=== PATIENT | female | born 1965 | race Asian ===

== ENCOUNTER 2021-01-25 15:39 | Emergency (ER) | payer OTHER ==
[2021-01-25 15:48] VITALS: BMI 23.0
[2021-01-25] MEDS ORDERED: ONDANSETRON 4 MG/2 ML VIAL IVPUSH ONE (16:35)
[2021-01-25] MEDS ORDERED: morphine CARPU-JECT 4 MG/1 ML DISP.SYRIN IVPUSH ONE (16:35)
[2021-01-25] MEDS ORDERED: SODIUM CHLORIDE 1,000 ML IV STA (16:35)
[2021-01-25] MEDS ORDERED: morphine SULFATE 4 MG/ML VIAL ONE (17:06)
[2021-01-25] MEDS ORDERED: ONDANSETRON 4 MG/2 ML VIAL ONE (17:06)
[2021-01-25 18:03] LABS: BASO % 0.4 % (0-2.0); EOS % 0.2 % (0-4.5); HEMATOCRIT 40.9 % (32.4-45.2); HEMOGLOBIN 13.9 GM/dL (10.7-15.3); LYMPH % 23.1 % (8-40); MCH 28.1 pg (25.7-33.7); MEAN CELL VOLUME 82.8 fl (80-96); MEAN PLT VOLUME 8.4 fl (7.5-11.1); MONO % 4.2 % (3.8-10.2); NEUT % 72.1 % (42.8-82.8); PLATELET COUNT 183 10^3/uL (134-434); RBC 4.94 M/mm3 (3.60-5.2); RDW 13.6 % (11.6-15.6); WHITE BLOOD COUNT 7.9 K/mm3 (4.0-10.0)
[2021-01-25 18:29] LABS: CALCIUM 9.6 mg/dL (8.5-10.1)
[2021-01-25 18:30] LABS: ALBUMIN 4.4 g/dl (3.4-5.0); BLOOD UREA NITROGEN 13.5 mg/dL (7-18)
[2021-01-25 18:32] LABS: CREATININE 0.7 mg/dL (0.55-1.3)
[2021-01-25 18:34] LABS: BILIRUBIN,TOTAL 0.7 mg/dL (0.2-1); TOT PROT 8.6 g/dl (6.4-8.2)
[2021-01-25 20:35] LABS: EPI CELLS 10 /uL (0-25.1); HYALINE CASTS 2 /uL (0-3.1); URINE APPEARANCE CLEAR; URINE BACTERIA 35 /uL (0-1359); URINE BILIRUBIN NEGATIVE (NEGATIVE); URINE COLOR YELLOW; URINE GLUCOSE (UA) NEGATIVE (NEGATIVE); URINE KETONE TRACE (NEGATIVE); URINE LEUK ESTERASE NEGATIVE (NEGATIVE); URINE NITRITE NEGATIVE (NEGATIVE); URINE PROTEIN 2+ (NEGATIVE); URINE RBC 52 /uL (0-23.9); URINE UROBILINOGEN 0.2 mg/dL (0.2-1.0); URINE WBC 4 /uL (0-25.8)
[2021-01-25 20:52] VITALS: BP 139/62; PULSE 69; TEMP 98.1
== END 2021-01-25 21:42 | disposition home or self-care (01) ==
LOC: JER 15:39
PROC: 3E033NZ Introduction of Analgesics, Hypnotics, Sedatives into Peripheral Vein, Percutaneous Approach (ICD-10-PCS; principal; 2021-01-25)
PROC: 3E033GC Introduction of Other Therapeutic Substance into Peripheral Vein, Percutaneous Approach (ICD-10-PCS; 2021-01-25)
PROC: 3E0337Z Introduction of Electrolytic and Water Balance Substance into Peripheral Vein, Percutaneous Approach (ICD-10-PCS; 2021-01-25)
DX: K57.90 Diverticulosis of intestine, part unspecified, without perforation or abscess without bleeding (principal)
CPT/HCPCS: 36415; 74177-TC; 80053; 81003; 83690; 85025; 87086; 87186; 99285-25; C9803; Q9967; U0003; U0005

== ENCOUNTER 2021-07-15 18:12 | Emergency (ER) | payer OTHER ==
[2021-07-15 18:17] VITALS: BP 165/96; PULSE 71; TEMP 97; BMI 23.3
[2021-07-15] MEDS ORDERED: SODIUM CHLORIDE 0.9% 500 ML INFUS.BAG IV ONE (19:28)
[2021-07-15 20:30] LABS: BASO % 0.2 % (0-2.0); EOS % 0.5 % (0-4.5); HEMATOCRIT 38.2 % (32.4-45.2); HEMOGLOBIN 13.2 GM/dL (10.7-15.3); LYMPH % 24.6 % (8-40); MCH 28.1 pg (25.7-33.7); MCHC 34.4 g/dl (32.0-36.0); MEAN CELL VOLUME 81.7 fl (80-96); MEAN PLT VOLUME 8.6 fl (7.5-11.1); MONO % 4.9 % (3.8-10.2); NEUT % 69.8 % (42.8-82.8); PLATELET COUNT 190 10^3/uL (134-434); RBC 4.68 M/mm3 (3.60-5.2); RDW 13.3 % (11.6-15.6); WHITE BLOOD COUNT 10.9 K/mm3 (4.0-10.0)
[2021-07-15 20:34] LABS: EPI CELLS 5 /uL (0-25.1); HYALINE CASTS 0 /uL (0-3.1); URINE APPEARANCE CLEAR; URINE BACTERIA 5 /uL (0-1359); URINE BILIRUBIN NEGATIVE (NEGATIVE); URINE COLOR YELLOW; URINE GLUCOSE (UA) NEGATIVE (NEGATIVE); URINE KETONE NEGATIVE (NEGATIVE); URINE LEUK ESTERASE NEGATIVE (NEGATIVE); URINE NITRITE NEGATIVE (NEGATIVE); URINE PROTEIN NEGATIVE (NEGATIVE); URINE RBC 22 /uL (0-23.9); URINE UROBILINOGEN 0.2 mg/dL (0.2-1.0); URINE WBC 5 /uL (0-25.8)
[2021-07-15] MEDS ORDERED: ACETAMINOPHEN 1000 MG/100 ML BAG IVPB ONE (20:52)
[2021-07-15] MEDS ORDERED: ACETAMINOPHEN INJECTION 100 ML IVPB ONE (20:59)
[2021-07-15 21:08] LABS: ALBUMIN 4.2 g/dl (3.4-5.0); CALCIUM 9.7 mg/dL (8.5-10.1)
[2021-07-15 21:11] LABS: CREATININE 0.6 mg/dL (0.55-1.3)
[2021-07-15 21:12] LABS: BILIRUBIN,TOTAL 0.8 mg/dL (0.2-1)
[2021-07-15 21:13] LABS: TOT PROT 7.8 g/dl (6.4-8.2)
== END 2021-07-15 23:36 | disposition home or self-care (01) ==
LOC: JER 18:12
PROC: 3E0333Z Introduction of Anti-inflammatory into Peripheral Vein, Percutaneous Approach (ICD-10-PCS; principal; 2021-07-15)
DX: R10.9 Unspecified abdominal pain (principal)
CPT/HCPCS: 36415; 74177-TC; 80053; 81003; 83605; 83690; 85025; 87086; 93005; 93010; 99285-25; Q9967

== ENCOUNTER 2021-07-26 05:20 | Day surgery (SDC) | payer OTHER ==
[2021-07-25 09:40] VITALS: BMI 23.0
[2021-07-26] MEDS ORDERED: SODIUM CHLORIDE 500 ML IV ONE (11:05)
[2021-07-26] MEDS ORDERED: ACETAMINOPHEN 1000 MG/100 ML BAG IVPB ONE (11:45)
[2021-07-26] MEDS ORDERED: MIDAZOLAM HCL 2 MG/2 ML SINGLE DOSE VIAL IVPUSH ONE (11:45)
[2021-07-26] MEDS ORDERED: ACETAMINOPHEN INJECTION 100 ML IVPB ONE (12:38)
[2021-07-26 13:58] VITALS: BP 105/60; PULSE 64; TEMP 98.1
== END 2021-07-26 14:00 | disposition home or self-care (01) ==
LOC: JRADIR 05:20
PROVIDERS: ATTEND Internal Medicine Hematology & Oncology
PROC: 07DD3ZX Extraction of Aortic Lymphatic, Percutaneous Approach, Diagnostic (ICD-10-PCS; principal; 2021-07-26)
DX: R59.0 Localized enlarged lymph nodes (principal)
CPT/HCPCS: 49180; 87070; 87075; 87116; 87205; 87206; 88305-TC; 88312-TC

== ENCOUNTER → 2021-09-10 | Day surgery (SDC) | payer OTHER ==
[2021-09-07 15:16] VITALS: BMI 22.8
[~2021-09-10] MED LIST: FENTANYL CITRATE/PF 50 MCG/ML VIAL IVPUSH PRN; LIDOCAINE HCL 1%, 10 MG/ML (20ML VIAL) INF ONE; LIDOCAINE HCL 1%, 10 MG/ML (20ML VIAL) ONE; ONDANSETRON 4 MG/2 ML VIAL IVPUSH PRN; ceFAZolin SODIUM 1 GM VIAL IVPB ONE
[2021-09-10 13:59] VITALS: BP 129/79; PULSE 64; TEMP 98
== END | disposition home or self-care (01) ==
LOC: JASU-SURG 04:12
PROVIDERS: ATTEND Surgery Vascular Surgery
PROC: B518ZZA Fluoroscopy of Superior Vena Cava, Guidance (ICD-10-PCS; 2021-09-10)
PROC: 02HV33Z Insertion of Infusion Device into Superior Vena Cava, Percutaneous Approach (ICD-10-PCS; principal; 2021-09-10 08:00)
DX: C7A.8 Other malignant neuroendocrine tumors (principal)
CPT/HCPCS: 36561; C1788; 71045-TC-FY; 76000-TC-FY; 94760; J1644

== ENCOUNTER 2021-09-12 06:44 | Day surgery (SDC) | payer OTHER ==
[2021-09-12] MEDS ORDERED: SODIUM CHLORIDE 1,000 ML IV ONE ×2 (09:00→12:00)
[2021-09-12] MEDS ORDERED: PALONOSETRON HCL 0.25 MG/5 ML VIAL IVPUSH ONE (09:30)
[2021-09-12] MEDS ORDERED: FOSAPREPITANT DIMEGLUMINE 150 MG in SODIUM CHLORIDE 145 ML IVPB ONE (09:30)
[2021-09-12] MEDS ORDERED: DEXAMETHASONE SODIUM PHOSPHATE 10 MG in SODIUM CHLORIDE 50 ML IVPB ONE (09:30)
[2021-09-12] MEDS ORDERED: SODIUM CHLORIDE IV ONE ×2 (10:00→14:00)
[2021-09-12] MEDS ORDERED: CISPLATIN IV ONE (10:00)
[2021-09-12 10:19] LABS: BASO % 0.5 % (0-2.0); EOS % 1.4 % (0-4.5); HEMATOCRIT 36.8 % (32.4-45.2); HEMOGLOBIN 12.4 GM/dL (10.7-15.3); LYMPH % 35.4 % (8-40); MCHC 33.7 g/dl (32.0-36.0); MEAN PLT VOLUME 8.9 fl (7.5-11.1); MONO % 6.3 % (3.8-10.2); NEUT % 56.4 % (42.8-82.8); PLATELET COUNT 168 10^3/uL (134-434); RBC 4.43 M/mm3 (3.60-5.2); WHITE BLOOD COUNT 6.1 K/mm3 (4.0-10.0)
[2021-09-12 10:50] LABS: CALCIUM 9.4 mg/dL (8.5-10.1)
[2021-09-12 10:51] LABS: ALBUMIN 3.9 g/dl (3.4-5.0); BLOOD UREA NITROGEN 9.3 mg/dL (7-18)
[2021-09-12 10:53] LABS: CREATININE 0.7 mg/dL (0.55-1.3)
[2021-09-12 10:56] LABS: BILIRUBIN,TOTAL 0.7 mg/dL (0.2-1); TOT PROT 7.3 g/dl (6.4-8.2)
[2021-09-12] MEDS ORDERED: DEXAMETHASONE SOD PHOSPHATE 20 MG/5 ML VIAL IVPB ONE (10:59)
[2021-09-12] MEDS ORDERED: WATER IVPB ONE (12:00)
[2021-09-12] MEDS ORDERED: DEXTROSE 5% IVPB ONE (12:00)
[2021-09-12] MEDS ORDERED: DEXAMETHASONE IVPB ONE (12:00)
[2021-09-12] MEDS ORDERED: OLANZapine 5 MG TABLET PO ONE (12:00)
[2021-09-12] MEDS ORDERED: KCL 10 MEQ IVPB 10 MEQ/100 ML INFUS.BAG IVPB ONE (12:00)
[2021-09-12] MEDS ORDERED: MAGNESIUM 1GM/D5W - 1 GM/100 ML IVPB IVPB ONE (13:00)
[2021-09-12] MEDS ORDERED: ETOPOSIDE IV ONE (14:00)
[2021-09-12] MEDS ORDERED: PORTA CATH FLUSH 10 ML IVPUSH PRN (16:47)
[2021-09-12 16:48] VITALS: TEMP 97.8
[2021-09-12 19:10] VITALS: BP 107/62; PULSE 95
== END 2021-09-12 19:15 | disposition home or self-care (01) ==
LOC: JONCCHEMO 06:44
PROVIDERS: ATTEND Internal Medicine Hematology & Oncology
DX: Z51.11 Encounter for antineoplastic chemotherapy (principal); C7A.1 Malignant poorly differentiated neuroendocrine tumors
CPT/HCPCS: 36415; 80053; 83735; 85025; 86480; 86704; 86708; 87340; 87517; 96361; 96367; 96375; 96413; 96415; 96417; J1453; J2469

== ENCOUNTER 2021-09-13 07:49 | Day surgery (SDC) | payer OTHER ==
[2021-09-13] MEDS ORDERED: SODIUM CHLORIDE 250 ML IV ONE (09:00)
[2021-09-13] MEDS ORDERED: DEXAMETHASONE SODIUM PHOSPHATE 10 MG in SODIUM CHLORIDE 50 ML IVPB ONE (09:30)
[2021-09-13] MEDS ORDERED: ETOPOSIDE IV ONE (10:00)
[2021-09-13] MEDS ORDERED: SODIUM CHLORIDE IV ONE (10:00)
[2021-09-13] MEDS ORDERED: SODIUM CHLORIDE 500 ML IV STA (13:48)
[2021-09-13] MEDS ORDERED: OLANZapine 5 MG TABLET PO ONE (14:00)
[2021-09-13 15:00] VITALS: TEMP 98.5
[2021-09-13] MEDS ORDERED: PORTA CATH FLUSH 10 ML IVPUSH PRN (15:08)
[2021-09-13 18:52] VITALS: BP 106/69; PULSE 73
== END 2021-09-13 18:53 | disposition home or self-care (01) ==
LOC: JONCCHEMO 07:49
PROVIDERS: ATTEND Internal Medicine Hematology & Oncology
DX: Z51.11 Encounter for antineoplastic chemotherapy (principal); C7A.1 Malignant poorly differentiated neuroendocrine tumors
CPT/HCPCS: 96375; 96413; 96415

== ENCOUNTER 2021-09-14 07:42 | Day surgery (SDC) | payer OTHER ==
[2021-09-14] MEDS ORDERED: SODIUM CHLORIDE 250 ML IV ONE (11:00)
[2021-09-14] MEDS ORDERED: SODIUM CHLORIDE IV ONE (11:00)
[2021-09-14] MEDS ORDERED: ETOPOSIDE IV ONE (11:00)
[2021-09-14] MEDS ORDERED: DEXAMETHASONE SODIUM PHOSPHATE 10 MG in SODIUM CHLORIDE 50 ML IVPB ONE (11:00)
[2021-09-14 14:52] LABS: ALBUMIN 3.4 g/dl (3.4-5.0); BLOOD UREA NITROGEN 13.8 mg/dL (7-18); CALCIUM 9.1 mg/dL (8.5-10.1)
[2021-09-14 14:56] LABS: CREATININE 0.6 mg/dL (0.55-1.3)
[2021-09-14 14:57] LABS: BILIRUBIN,TOTAL 0.8 mg/dL (0.2-1); TOT PROT 6.5 g/dl (6.4-8.2)
[2021-09-14] MEDS ORDERED: PEGFILGRASTIM (NEULASTA ONPRO) 6 MG/0.6 ML KIT SQ ONE (15:00)
[2021-09-14] MEDS ORDERED: OLANZapine 5 MG TABLET PO ONE (15:00)
[2021-09-14 15:24] LABS: MAGNESIUM 2.3 mg/dL (1.8-2.4)
[2021-09-14 16:06] VITALS: BP 130/72; PULSE 87; TEMP 98.1
[2021-09-14] MEDS ORDERED: PORTA CATH FLUSH 10 ML IVPUSH PRN (16:06)
== END 2021-09-14 16:10 | disposition home or self-care (01) ==
LOC: JONCCHEMO 07:42
PROVIDERS: ATTEND Internal Medicine Hematology & Oncology
PROC: 3E04305 Introduction of Other Antineoplastic into Central Vein, Percutaneous Approach (ICD-10-PCS; principal; 2021-09-14)
PROC: 3E013GC Introduction of Other Therapeutic Substance into Subcutaneous Tissue, Percutaneous Approach (ICD-10-PCS; 2021-09-14)
DX: Z51.11 Encounter for antineoplastic chemotherapy (principal); C7A.1 Malignant poorly differentiated neuroendocrine tumors
CPT/HCPCS: 36415; 80053; 83735; 96372; 96375; 96413; 96415; J2506

== ENCOUNTER 2021-09-19 06:48 | Day surgery (SDC) | payer OTHER ==
[2021-09-19 09:29] LABS: HEMATOCRIT 35.2 % (32.4-45.2); MCH 28.4 pg (25.7-33.7); MCHC 34.1 g/dl (32.0-36.0); MEAN CELL VOLUME 83.4 fl (80-96); MEAN PLT VOLUME 8.8 fl (7.5-11.1); PLATELET COUNT 121 10^3/uL (134-434); RBC 4.22 M/mm3 (3.60-5.2); WHITE BLOOD COUNT 5.7 K/mm3 (4.0-10.0)
[2021-09-19 10:50] LABS: ALBUMIN 3.8 g/dl (3.4-5.0); BLOOD UREA NITROGEN 16.4 mg/dL (7-18); CALCIUM 8.8 mg/dL (8.5-10.1); MAGNESIUM 2.2 mg/dL (1.8-2.4)
[2021-09-19 10:53] LABS: CREATININE 0.6 mg/dL (0.55-1.3)
[2021-09-19 10:54] LABS: TOT PROT 7.2 g/dl (6.4-8.2)
[2021-09-19 10:57] LABS: BILIRUBIN,TOTAL 0.6 mg/dL (0.2-1)
[2021-09-19] MEDS ORDERED: SODIUM CHLORIDE 500 ML IV STA (11:11)
[2021-09-19 11:14] LABS: PLATELET ESTIMATE SLT DECREASE
[2021-09-19 12:30] VITALS: TEMP 98.3
[2021-09-19 16:56] VITALS: BP 117/74; PULSE 80
== END 2021-09-19 13:35 | disposition home or self-care (01) ==
LOC: JONCCHEMO 06:48
PROVIDERS: ATTEND Internal Medicine Hematology & Oncology
PROC: 3E0437Z Introduction of Electrolytic and Water Balance Substance into Central Vein, Percutaneous Approach (ICD-10-PCS; principal; 2021-09-19)
DX: C7A.1 Malignant poorly differentiated neuroendocrine tumors (principal); Z76.89 Persons encountering health services in other specified circumstances
CPT/HCPCS: 36415; 80053; 83735; 85025; 96360; 96361

== ENCOUNTER 2021-09-22 18:04 | Inpatient (IN) | payer OTHER ==
[2021-09-22] MEDS ORDERED: CEFEPIME HCL/D5W 2 GM/50 ML BAG IVPB ONE (18:25)
[2021-09-22] MEDS ORDERED: VANCOMYCIN/WATER 1,250 MG/250 ML BAG IVPB ONE (18:28)
[2021-09-22] MEDS ORDERED: ACETAMINOPHEN 1000 MG/100 ML BAG IVPB ONE (18:48)
[2021-09-22] MEDS ORDERED: ACETAMINOPHEN INJECTION 100 ML IVPB ONE (18:52)
[2021-09-22] MEDS ORDERED: CEFEPIME 2 GM/100 ML BAG IVPB ONE (18:52)
[2021-09-22] MEDS ORDERED: SODIUM CHLORIDE 1,701 ML IV ONE (18:56)
[2021-09-22 19:13] LABS: HEMATOCRIT 32.8 % (32.4-45.2); HEMOGLOBIN 10.9 GM/dL (10.7-15.3); MCH 27.7 pg (25.7-33.7); MCHC 33.3 g/dl (32.0-36.0); MEAN CELL VOLUME 83.2 fl (80-96); MEAN PLT VOLUME 8.5 fl (7.5-11.1); PLATELET COUNT 101 10^3/uL (134-434); RBC 3.94 M/mm3 (3.60-5.2); RDW 13.4 % (11.6-15.6); WHITE BLOOD COUNT 4.2 K/mm3 (4.0-10.0)
[2021-09-22 19:19] LABS: INR 1.08 (0.83-1.09); PROTHROMBIN TIME (PATIENT) 12.4 SEC (9.7-13.0)
[2021-09-22 19:21] LABS: ACTIVATED PTT 28.2 SECONDS (25.2-36.5)
[2021-09-22 19:32] LABS: BLOOD UREA NITROGEN 8.5 mg/dL (7-18); MAGNESIUM 1.9 mg/dL (1.8-2.4)
[2021-09-22 19:33] LABS: ALBUMIN 3.7 g/dl (3.4-5.0)
[2021-09-22 19:34] LABS: URIC ACID 3.6 mg/dL (2.6-7.2)
[2021-09-22 19:35] LABS: CREATININE 0.8 mg/dL (0.55-1.3)
[2021-09-22 19:36] LABS: PHOSPHOROUS 2.9 mg/dL (2.5-4.9)
[2021-09-22 19:37] LABS: BILIRUBIN,TOTAL 0.4 mg/dL (0.2-1)
[2021-09-22] MEDS ORDERED: LACTATED RINGERS SOLUTION 1000 ML INFUS.BAG IV ONE (20:03)
[2021-09-22 21:37] LABS: ANISOCYTOSIS 2+; MACROCYTOSIS 0; OVALOCYTE 1+; TEAR DROP CELLS 1+
[2021-09-22 22:39] LABS: PH,URINE 5.5 (5.0-8.0); URINE APPEARANCE CLEAR; URINE BILIRUBIN NEGATIVE (NEGATIVE); URINE COLOR YELLOW; URINE GLUCOSE (UA) NEGATIVE (NEGATIVE); URINE KETONE NEGATIVE (NEGATIVE); URINE LEUK ESTERASE NEGATIVE (NEGATIVE); URINE NITRITE NEGATIVE (NEGATIVE); URINE PROTEIN NEGATIVE (NEGATIVE); URINE UROBILINOGEN 0.2 mg/dL (0.2-1.0)
[2021-09-22] MEDS ORDERED: LOSARTAN POTASSIUM 50 MG TABLET ONE (22:42)
[2021-09-22] MEDS: LOSARTAN POTASSIUM 50 MG TABLET PO SCH (22:52)
[2021-09-23] MEDS: ACETAMINOPHEN 325 MG TABLET (FP) PO PRN ×2 (01:25→13:52)
[2021-09-23 03:04] VITALS: BMI 23.6
[2021-09-23] MEDS: WATER IVPB SCH (07:43)
[2021-09-23] MEDS: CEFEPIME IVPB SCH (07:43)
[2021-09-23] MEDS: DEXTROSE 5% IVPB SCH (07:43)
[2021-09-23] MEDS: ONDANSETRON 4 MG/2 ML VIAL IVPB PRN ×3 (08:45→21:12)
[2021-09-23] MEDS ORDERED: ACETAMINOPHEN 1000 MG/100 ML BAG IVPB ONE (08:45)
[2021-09-23 08:56] LABS: HEMATOCRIT 32.8 % (32.4-45.2); MCH 27.9 pg (25.7-33.7); MCHC 33.5 g/dl (32.0-36.0); MEAN CELL VOLUME 83.3 fl (80-96); MEAN PLT VOLUME 8.1 fl (7.5-11.1); PLATELET COUNT 96 10^3/uL (134-434); RBC 3.94 M/mm3 (3.60-5.2); WHITE BLOOD COUNT 4.1 K/mm3 (4.0-10.0)
[2021-09-23] MEDS ORDERED: PANTOPRAZOLE SODIUM 40 MG VIAL IVPUSH ONE (08:59)
[2021-09-23 09:13] LABS: ALBUMIN 3.4 g/dl (3.4-5.0)
[2021-09-23 09:14] LABS: BLOOD UREA NITROGEN 6.4 mg/dL (7-18); CALCIUM 9.1 mg/dL (8.5-10.1); MAGNESIUM 2.2 mg/dL (1.8-2.4)
[2021-09-23 09:16] LABS: CREATININE 0.6 mg/dL (0.55-1.3)
[2021-09-23 09:18] LABS: TOT PROT 6.6 g/dl (6.4-8.2)
[2021-09-23 09:21] LABS: BILIRUBIN,TOTAL 0.4 mg/dL (0.2-1)
[2021-09-23 09:46] LABS: ANISOCYTOSIS 1+; MACROCYTOSIS 0
[2021-09-23] MEDS ORDERED: CEFEPIME HCL/D5W 2 GM/50 ML BAG IVPB SCH (10:00)
[2021-09-23] MEDS: ENOXAPARIN NA (PORCINE) 40 MG/0.4 ML DISP.SYRIN SQ SCH (10:35)
[2021-09-23] MEDS ORDERED: DEXTROSE 5%-WATER 100 ML IVPB ONE (11:45)
[2021-09-23] MEDS ORDERED: CEFEPIME HCL 2 GM VIAL (RESTRICTED TO ID) ONE (11:45)
[2021-09-23] MEDS: CEFEPIME 2 GM in DEXTROSE 5%-WATER 100 ML IVPB SCH (11:47)
[2021-09-23] MEDS ORDERED: REMDESIVIR 200 MG in SODIUM CHLORIDE 250 ML IVPB ONE (13:00)
[2021-09-23] MEDS ORDERED: METOCLOPRAMIDE HCL INJECTION 10 MG/2 ML VIAL IVPUSH ONE (14:11)
[2021-09-23] MEDS ORDERED: SODIUM CHLORIDE 0.9% 1000 ML INFUS.BAG IV SCH ×2 (14:30→18:45)
[2021-09-23] MEDS ORDERED: VANCOMYCIN/WATER FOR INJ (PEG) 1,000 MG/200 ML BAG IVPB SCH (18:00)
[2021-09-23] MEDS ORDERED: VANCOMYCIN 1 GM/200 ML PREMIX BAG IVPB SCH (18:00)
[2021-09-23] MEDS ORDERED: ACETAMINOPHEN 1000 MG/100 ML BAG IVPB PRN (18:30)
[2021-09-23] MEDS: SODIUM CHLORIDE 1,000 ML IV SCH (18:55)
[2021-09-23] MEDS: PANTOPRAZOLE SODIUM 40 MG VIAL IVPB SCH (21:12)
[2021-09-23] MEDS: LOSARTAN POTASSIUM 50 MG TABLET PO SCH (22:41)
[2021-09-24] MEDS ORDERED: CEFEPIME HCL 2 GM VIAL (RESTRICTED TO ID) ONE ×3 (00:42→23:02)
[2021-09-24] MEDS ORDERED: DEXTROSE 5%-WATER 100 ML IVPB ONE ×3 (00:42→23:03)
[2021-09-24] MEDS: CEFEPIME 2 GM in DEXTROSE 5%-WATER 100 ML IVPB SCH ×3 (00:59→23:54)
[2021-09-24] MEDS: SODIUM CHLORIDE 1,000 ML IV SCH ×2 (07:10→18:22)
[2021-09-24 09:28] LABS: HEMATOCRIT 31.2 % (32.4-45.2); HEMOGLOBIN 10.5 GM/dL (10.7-15.3); MCH 28.1 pg (25.7-33.7); MCHC 33.7 g/dl (32.0-36.0); MEAN CELL VOLUME 83.3 fl (80-96); MEAN PLT VOLUME 7.7 fl (7.5-11.1); PLATELET COUNT 83 10^3/uL (134-434); RBC 3.74 M/mm3 (3.60-5.2); RDW 14.2 % (11.6-15.6); WHITE BLOOD COUNT 3.4 K/mm3 (4.0-10.0)
[2021-09-24] MEDS: ENOXAPARIN NA (PORCINE) 40 MG/0.4 ML DISP.SYRIN SQ SCH (09:41)
[2021-09-24] MEDS: PANTOPRAZOLE SODIUM 40 MG VIAL IVPB SCH ×2 (09:42→09:49)
[2021-09-24 10:35] LABS: ALBUMIN 3.3 g/dl (3.4-5.0)
[2021-09-24 10:36] LABS: CALCIUM 8.7 mg/dL (8.5-10.1)
[2021-09-24 10:39] LABS: BILIRUBIN,TOTAL 0.3 mg/dL (0.2-1)
[2021-09-24 10:41] LABS: TOT PROT 6.4 g/dl (6.4-8.2)
[2021-09-24 10:53] LABS: CREATININE 0.6 mg/dL (0.55-1.3)
[2021-09-24] MEDS ORDERED: guaiFENesin/D-METHORPHAN HB 10 ML UNIT-DOSE CUPS PO PRN (12:14)
[2021-09-24 13:09] LABS: ANISOCYTOSIS 0; MACROCYTOSIS 0; OVALOCYTE 1+; TOXIC GRANULATION 3+
[2021-09-24] MEDS: REMDESIVIR 100 MG in SODIUM CHLORIDE 250 ML IVPB SCH (13:22)
[2021-09-24] MEDS: LOSARTAN POTASSIUM 50 MG TABLET PO SCH (22:15)
[2021-09-24] MEDS: ONDANSETRON 4 MG/2 ML VIAL IVPB PRN (22:23)
[2021-09-25] MEDS: SODIUM CHLORIDE 1,000 ML IV SCH (04:24)
[2021-09-25 09:40] LABS: HEMATOCRIT 33.3 % (32.4-45.2); HEMOGLOBIN 11.2 GM/dL (10.7-15.3); MCH 28.1 pg (25.7-33.7); MCHC 33.6 g/dl (32.0-36.0); MEAN CELL VOLUME 83.8 fl (80-96); MEAN PLT VOLUME 7.8 fl (7.5-11.1); PLATELET COUNT 100 10^3/uL (134-434); RBC 3.97 M/mm3 (3.60-5.2); RDW 14.3 % (11.6-15.6); WHITE BLOOD COUNT 3.7 K/mm3 (4.0-10.0)
[2021-09-25] MEDS: ENOXAPARIN NA (PORCINE) 40 MG/0.4 ML DISP.SYRIN SQ SCH (10:09)
[2021-09-25] MEDS: PANTOPRAZOLE SODIUM 40 MG VIAL IVPB SCH (10:10)
[2021-09-25 10:11] LABS: CALCIUM 8.7 mg/dL (8.5-10.1)
[2021-09-25 10:15] LABS: CREATININE 0.7 mg/dL (0.55-1.3)
[2021-09-25 10:36] LABS: ANISOCYTOSIS 2+; MACROCYTOSIS 0; PLATELET ESTIMATE DECREASED
[2021-09-25] MEDS: REMDESIVIR 100 MG in SODIUM CHLORIDE 250 ML IVPB SCH (12:25)
[2021-09-25 15:08] VITALS: BP 116/69; PULSE 79; TEMP 98.5
[2021-09-26 15:08] LABS: SARS-CoV-2 NAA Detected (Not Detected)
== END 2021-09-25 18:08 | disposition home or self-care (01) | DRG 177 ==
LOC: JER 18:04 → JERBED 19:28 → J5S 09-23 01:13
PROVIDERS: ADMIT Internal Medicine
PROC: XW033E5 Introduction of Remdesivir Anti-infective into Peripheral Vein, Percutaneous Approach, New Technology Group 5 (ICD-10-PCS; principal; 2021-09-23)
DX: U07.1 COVID-19 (principal); J12.82 Pneumonia due to coronavirus disease 2019; C7A.8 Other malignant neuroendocrine tumors; R50.9 Fever, unspecified; R00.0 Tachycardia, unspecified; D70.1 Agranulocytosis secondary to cancer chemotherapy; I10 Essential (primary) hypertension; R11.2 Nausea with vomiting, unspecified
CPT/HCPCS: 0241U-QW; 36415; 71045-TC-FY; 80048; 80053; 81003; 83605; 83615; 83690; 83735; 84100; 84484; 84550; 85025; 85610; 85730; 86140; 86708; 86850; 86900; 86901; 87040; 87086; 87517; 93005; 93010; 99291; C9399; C9803-CS; U0003; U0005

== ENCOUNTER 2021-10-25 07:51 | Day surgery (SDC) | payer OTHER ==
[2021-10-25 14:19] LABS: BASO % 0.2 % (0-2.0); EOS % 0.1 % (0-4.5); HEMATOCRIT 33.9 % (32.4-45.2); HEMOGLOBIN 11.3 GM/dL (10.7-15.3); LYMPH % 21.2 % (8-40); MCH 28.2 pg (25.7-33.7); MCHC 33.2 g/dl (32.0-36.0); MEAN CELL VOLUME 84.8 fl (80-96); MEAN PLT VOLUME 8.8 fl (7.5-11.1); MONO % 5.6 % (3.8-10.2); NEUT % 72.9 % (42.8-82.8); PLATELET COUNT 136 10^3/uL (134-434); RDW 15.7 % (11.6-15.6)
[2021-10-25 14:33] LABS: ALBUMIN 3.9 g/dl (3.4-5.0); CALCIUM 9.2 mg/dL (8.5-10.1)
[2021-10-25 14:38] LABS: CREATININE 0.7 mg/dL (0.55-1.3); TOT PROT 7.4 g/dl (6.4-8.2)
[2021-10-25 14:39] LABS: BILIRUBIN,TOTAL 0.4 mg/dL (0.2-1)
[2021-10-25] MEDS ORDERED: [UNRECOGNIZED DRUG - OTHER] IM ONE (15:00)
[2021-10-25 15:18] VITALS: BP 147/75; PULSE 69; TEMP 98.1
== END 2021-10-25 15:50 | disposition home or self-care (01) ==
LOC: JONCCHEMO 07:51
PROVIDERS: ATTEND Internal Medicine Hematology & Oncology
PROC: 3E013GC Introduction of Other Therapeutic Substance into Subcutaneous Tissue, Percutaneous Approach (ICD-10-PCS; principal; 2021-10-25)
DX: C7A.1 Malignant poorly differentiated neuroendocrine tumors (principal); Z76.89 Persons encountering health services in other specified circumstances
CPT/HCPCS: 36415; 80053; 83497; 85025; 86316; 96372; J2353

== ENCOUNTER 2021-11-23 07:21 | Day surgery (SDC) | payer OTHER ==
[2021-11-23 09:50] LABS: BASO % 0.2 % (0-2.0); EOS % 1.6 % (0-4.5); HEMATOCRIT 35.7 % (32.4-45.2); HEMOGLOBIN 11.9 GM/dL (10.7-15.3); LYMPH % 29.2 % (8-40); MCH 27.8 pg (25.7-33.7); MCHC 33.2 g/dl (32.0-36.0); MEAN CELL VOLUME 83.6 fl (80-96); MEAN PLT VOLUME 8.3 fl (7.5-11.1); MONO % 6.5 % (3.8-10.2); NEUT % 62.5 % (42.8-82.8); PLATELET COUNT 197 10^3/uL (134-434); RBC 4.27 M/mm3 (3.60-5.2); RDW 14.5 % (11.6-15.6); WHITE BLOOD COUNT 9.1 K/mm3 (4.0-10.0)
[2021-11-23 09:55] LABS: CALCIUM 9.6 mg/dL (8.5-10.1)
[2021-11-23 09:56] LABS: ALBUMIN 3.8 g/dl (3.4-5.0); BLOOD UREA NITROGEN 8.8 mg/dL (7-18)
[2021-11-23 09:58] LABS: CREATININE 0.7 mg/dL (0.55-1.3)
[2021-11-23 10:00] LABS: BILIRUBIN,TOTAL 0.4 mg/dL (0.2-1); TOT PROT 7.8 g/dl (6.4-8.2)
[2021-11-23] MEDS ORDERED: OCTREOTIDE ACETATE,MI-SPHERES (SANDOSTATIN LAR) 30 MG VIAL IM ONE (10:00)
[2021-11-23] MEDS ORDERED: PORTA CATH FLUSH 10 ML IVPUSH PRN (16:11)
[2021-11-23 16:12] VITALS: BP 118/76; PULSE 71; RESP 18; TEMP 98.8
== END 2021-11-23 11:20 | disposition home or self-care (01) ==
LOC: JONCCHEMO 07:21
PROVIDERS: ATTEND Internal Medicine Hematology & Oncology
PROC: 3E013GC Introduction of Other Therapeutic Substance into Subcutaneous Tissue, Percutaneous Approach (ICD-10-PCS; principal; 2021-11-23)
DX: C7A.1 Malignant poorly differentiated neuroendocrine tumors (principal); Z76.89 Persons encountering health services in other specified circumstances
CPT/HCPCS: 36415; 80053; 85025; 96372; J2353

== ENCOUNTER 2021-12-21 07:34 | Day surgery (SDC) | payer OTHER ==
[2021-12-21] MEDS ORDERED: OCTREOTIDE ACETATE,MI-SPHERES (SANDOSTATIN LAR) 30 MG VIAL IM ONE (10:00)
[2021-12-21 10:15] LABS: BASO % 0.7 % (0-2.0); EOS % 2.1 % (0-4.5); HEMOGLOBIN 12.3 GM/dL (10.7-15.3); LYMPH % 49.8 % (8-40); MCH 27.7 pg (25.7-33.7); MCHC 33.4 g/dl (32.0-36.0); MEAN CELL VOLUME 83.1 fl (80-96); MEAN PLT VOLUME 9.2 fl (7.5-11.1); MONO % 5.9 % (3.8-10.2); NEUT % 41.5 % (42.8-82.8); PLATELET COUNT 169 10^3/uL (134-434); RBC 4.44 M/mm3 (3.60-5.2); RDW 14.4 % (11.6-15.6); WHITE BLOOD COUNT 5.9 K/mm3 (4.0-10.0)
[2021-12-21 10:46] LABS: BILIRUBIN,TOTAL 0.6 mg/dL (0.2-1); BLOOD UREA NITROGEN 11.7 mg/dL (7-18); CALCIUM 9.2 mg/dL (8.5-10.1); CREATININE 0.8 mg/dL (0.55-1.3); TOT PROT 7.7 g/dl (6.4-8.2)
[2021-12-21 11:48] VITALS: BP 114/68; PULSE 69; RESP 18; TEMP 98.7
== END 2021-12-21 11:10 | disposition home or self-care (01) ==
LOC: JONCCHEMO 07:34
PROVIDERS: ATTEND Internal Medicine Hematology & Oncology
PROC: 3E013GC Introduction of Other Therapeutic Substance into Subcutaneous Tissue, Percutaneous Approach (ICD-10-PCS; principal; 2021-12-21)
DX: C7A.1 Malignant poorly differentiated neuroendocrine tumors (principal)
CPT/HCPCS: 36415; 80053; 85025; 96372; J2353

== ENCOUNTER 2022-01-23 12:01 | Day surgery (SDC) | payer OTHER ==
[~2022-01-23 12:01] MED LIST changes: -FENTANYL CITRATE/PF 50 MCG/ML VIAL IVPUSH PRN; -LIDOCAINE HCL 1%, 10 MG/ML (20ML VIAL) INF ONE; -LIDOCAINE HCL 1%, 10 MG/ML (20ML VIAL) ONE; +OCTREOTIDE ACETATE,MI-SPHERES (SANDOSTATIN LAR) 30 MG VIAL IM ONE; -ONDANSETRON 4 MG/2 ML VIAL IVPUSH PRN; -ceFAZolin SODIUM 1 GM VIAL IVPB ONE
[2022-01-23 12:02] LABS: BASO % 0.4 % (0-2.0); EOS % 1.4 % (0-4.5); HEMATOCRIT 38.3 % (32.4-45.2); HEMOGLOBIN 12.5 GM/dL (10.7-15.3); LYMPH % 40.3 % (8-40); MCH 27.3 pg (25.7-33.7); MCHC 32.8 g/dl (32.0-36.0); MEAN CELL VOLUME 83.3 fl (80-96); MEAN PLT VOLUME 7.9 fl (7.5-11.1); MONO % 6.2 % (3.8-10.2); NEUT % 51.7 % (42.8-82.8); PLATELET COUNT 215 10^3/uL (134-434); RDW 14.5 % (11.6-15.6); WHITE BLOOD COUNT 7.7 K/mm3 (4.0-10.0)
[2022-01-23 12:25] LABS: CALCIUM 9.7 mg/dL (8.5-10.1)
[2022-01-23 12:26] LABS: BLOOD UREA NITROGEN 9.7 mg/dL (7-18); MAGNESIUM 2.5 mg/dL (1.8-2.4)
[2022-01-23 12:28] LABS: BILIRUBIN,DIRECT 0.1 mg/dL (0.0-0.2)
[2022-01-23 12:29] LABS: CREATININE 0.8 mg/dL (0.55-1.3)
[2022-01-23 12:30] LABS: BILIRUBIN,TOTAL 0.5 mg/dL (0.2-1); TOT PROT 7.8 g/dl (6.4-8.2)
[2022-01-23 17:43] VITALS: BP 127/76; PULSE 64; RESP 20; TEMP 98.1
== END 2022-01-23 13:00 | disposition home or self-care (01) ==
LOC: JONCCHEMO 12:01
PROVIDERS: ATTEND Internal Medicine Hematology & Oncology
PROC: 3E023GC Introduction of Other Therapeutic Substance into Muscle, Percutaneous Approach (ICD-10-PCS; principal; 2022-01-23)
DX: Z76.89 Persons encountering health services in other specified circumstances (principal); C7A.1 Malignant poorly differentiated neuroendocrine tumors
CPT/HCPCS: 36415; 80048; 80076; 83735; 85025; 86316; 96372; J2353

== ENCOUNTER 2022-02-20 13:03 | Day surgery (SDC) | payer OTHER ==
[2022-02-20 13:35] LABS: BASO % 0.4 % (0-2.0); EOS % 1.2 % (0-4.5); HEMOGLOBIN 13.2 GM/dL (10.7-15.3); LYMPH % 43.4 % (8-40); MCH 27.9 pg (25.7-33.7); MCHC 33.9 g/dl (32.0-36.0); MEAN CELL VOLUME 82.3 fl (80-96); MEAN PLT VOLUME 8.7 fl (7.5-11.1); MONO % 6.6 % (3.8-10.2); NEUT % 48.4 % (42.8-82.8); PLATELET COUNT 179 10^3/uL (134-434); RBC 4.73 M/mm3 (3.60-5.2); RDW 14.1 % (11.6-15.6); WHITE BLOOD COUNT 6.5 K/mm3 (4.0-10.0)
[2022-02-20 13:58] LABS: ALBUMIN 4.3 g/dl (3.4-5.0); BLOOD UREA NITROGEN 10.8 mg/dL (7-18); CALCIUM 9.5 mg/dL (8.5-10.1)
[2022-02-20 13:59] LABS: MAGNESIUM 2.5 mg/dL (1.8-2.4)
[2022-02-20 14:01] LABS: BILIRUBIN,DIRECT 0.1 mg/dL (0.0-0.2); CREATININE 0.7 mg/dL (0.55-1.3)
[2022-02-20 14:03] LABS: BILIRUBIN,TOTAL 0.5 mg/dL (0.2-1); TOT PROT 8.4 g/dl (6.4-8.2)
[2022-02-20 16:46] VITALS: BP 129/68; PULSE 76; RESP 20; TEMP 97.9
== END 2022-02-20 13:45 | disposition home or self-care (01) ==
LOC: JONCCHEMO 13:03
PROVIDERS: ATTEND Internal Medicine Hematology & Oncology
PROC: 3E013GC Introduction of Other Therapeutic Substance into Subcutaneous Tissue, Percutaneous Approach (ICD-10-PCS; principal; 2022-02-20)
DX: C7A.1 Malignant poorly differentiated neuroendocrine tumors (principal)
CPT/HCPCS: 36415; 80048; 80076; 83735; 85025; 86316; 96372; J2353

== ENCOUNTER 2022-03-20 11:58 | Day surgery (SDC) | payer OTHER ==
[2022-03-20 12:33] LABS: BASO % 0.6 % (0-2.0); HEMATOCRIT 38.9 % (32.4-45.2); HEMOGLOBIN 12.7 GM/dL (10.7-15.3); LYMPH % 45.3 % (8-40); MCH 27.1 pg (25.7-33.7); MCHC 32.7 g/dl (32.0-36.0); MEAN CELL VOLUME 83.1 fl (80-96); MEAN PLT VOLUME 8.9 fl (7.5-11.1); MONO % 6.3 % (3.8-10.2); NEUT % 45.8 % (42.8-82.8); PLATELET COUNT 171 10^3/uL (134-434); RBC 4.68 M/mm3 (3.60-5.2); RDW 14.5 % (11.6-15.6); WHITE BLOOD COUNT 5.9 K/mm3 (4.0-10.0)
[2022-03-20 12:54] LABS: ALBUMIN 4.2 g/dl (3.4-5.0); BLOOD UREA NITROGEN 10.7 mg/dL (7-18); CALCIUM 9.6 mg/dL (8.5-10.1); MAGNESIUM 2.2 mg/dL (1.8-2.4)
[2022-03-20 12:57] LABS: BILIRUBIN,DIRECT 0.2 mg/dL (0.0-0.2); CREATININE 0.8 mg/dL (0.55-1.3)
[2022-03-20 12:59] LABS: BILIRUBIN,TOTAL 0.5 mg/dL (0.2-1); TOT PROT 7.7 g/dl (6.4-8.2)
[2022-03-20 15:25] VITALS: BP 108/70; PULSE 68; RESP 18; TEMP 98.1
== END 2022-03-20 12:55 | disposition home or self-care (01) ==
LOC: JONCCHEMO 11:58
PROVIDERS: ATTEND Internal Medicine Hematology & Oncology
PROC: 3E013GC Introduction of Other Therapeutic Substance into Subcutaneous Tissue, Percutaneous Approach (ICD-10-PCS; principal; 2022-03-20)
DX: C7A.1 Malignant poorly differentiated neuroendocrine tumors (principal); Z76.89 Persons encountering health services in other specified circumstances
CPT/HCPCS: 36415; 80048; 80076; 83735; 85025; 86316; 96372; J2353

== ENCOUNTER 2022-04-17 12:09 | Day surgery (SDC) | payer OTHER ==
[2022-04-17] MEDS ORDERED: OCTREOTIDE ACETATE,MI-SPHERES (SANDOSTATIN LAR) 30 MG VIAL IM ONE (13:15)
[2022-04-17 13:28] LABS: BASO % 0.4 % (0-2.0); EOS % 1.2 % (0-4.5); HEMATOCRIT 37.8 % (32.4-45.2); HEMOGLOBIN 12.5 GM/dL (10.7-15.3); LYMPH % 44.2 % (8-40); MCH 27.4 pg (25.7-33.7); MEAN CELL VOLUME 82.9 fl (80-96); MEAN PLT VOLUME 9.3 fl (7.5-11.1); MONO % 7.4 % (3.8-10.2); NEUT % 46.8 % (42.8-82.8); PLATELET COUNT 179 10^3/uL (134-434); RBC 4.56 M/mm3 (3.60-5.2); RDW 14.4 % (11.6-15.6); WHITE BLOOD COUNT 6.6 K/mm3 (4.0-10.0)
[2022-04-17 13:52] LABS: BLOOD UREA NITROGEN 9.6 mg/dL (7-18); CALCIUM 9.5 mg/dL (8.5-10.1); MAGNESIUM 2.2 mg/dL (1.8-2.4)
[2022-04-17 13:55] LABS: BILIRUBIN,DIRECT 0.1 mg/dL (0.0-0.2); CREATININE 0.7 mg/dL (0.55-1.3)
[2022-04-17 13:57] LABS: BILIRUBIN,TOTAL 0.4 mg/dL (0.2-1); TOT PROT 7.7 g/dl (6.4-8.2)
[2022-04-17 16:32] VITALS: BP 126/72; PULSE 78; RESP 20; TEMP 98.5
[2022-04-17] MEDS ORDERED: PORTA CATH FLUSH 10 ML IVPUSH PRN (16:32)
== END 2022-04-17 13:40 | disposition home or self-care (01) ==
LOC: JONCCHEMO 12:09
PROVIDERS: ATTEND Internal Medicine Hematology & Oncology
PROC: 3E013GC Introduction of Other Therapeutic Substance into Subcutaneous Tissue, Percutaneous Approach (ICD-10-PCS; principal; 2022-04-17)
DX: C7A.1 Malignant poorly differentiated neuroendocrine tumors (principal); Z76.89 Persons encountering health services in other specified circumstances
CPT/HCPCS: 36415; 80048; 80076; 83735; 85025; 86316; 96372; J2353

== ENCOUNTER 2022-06-20 10:39 | Day surgery (SDC) | payer OTHER ==
[2022-06-20 11:09] LABS: BASO % 0.2 % (0-2.0); EOS % 1.2 % (0-4.5); HEMATOCRIT 34.7 % (32.4-45.2); HEMOGLOBIN 11.6 GM/dL (10.7-15.3); LYMPH % 32.7 % (8-40); MCH 28.2 pg (25.7-33.7); MCHC 33.5 g/dl (32.0-36.0); MEAN PLT VOLUME 8.6 fl (7.5-11.1); MONO % 7.8 % (3.8-10.2); NEUT % 58.1 % (42.8-82.8); PLATELET COUNT 142 10^3/uL (134-434); RBC 4.13 M/mm3 (3.60-5.2); RDW 14.1 % (11.6-15.6); WHITE BLOOD COUNT 5.4 K/mm3 (4.0-10.0)
[2022-06-20 12:05] LABS: CALCIUM 9.2 mg/dL (8.5-10.1)
[2022-06-20 12:06] LABS: ALBUMIN 3.9 g/dl (3.4-5.0); BLOOD UREA NITROGEN 14.2 mg/dL (7-18); MAGNESIUM 2.3 mg/dL (1.8-2.4)
[2022-06-20 12:08] LABS: BILIRUBIN,DIRECT 0.1 mg/dL (0.0-0.2); CREATININE 0.8 mg/dL (0.55-1.3)
[2022-06-20 12:09] LABS: BILIRUBIN,TOTAL 0.3 mg/dL (0.2-1); TOT PROT 7.4 g/dl (6.4-8.2)
[2022-06-20 14:41] VITALS: BP 119/72; PULSE 72; RESP 18; TEMP 98.4
== END 2022-06-20 11:35 | disposition home or self-care (01) ==
LOC: JONCCHEMO 10:39
PROVIDERS: ATTEND Internal Medicine Hematology & Oncology
PROC: 3E013GC Introduction of Other Therapeutic Substance into Subcutaneous Tissue, Percutaneous Approach (ICD-10-PCS; principal; 2022-06-20)
DX: C7A.1 Malignant poorly differentiated neuroendocrine tumors (principal); Z76.89 Persons encountering health services in other specified circumstances
CPT/HCPCS: 36415; 80048; 80076; 83735; 85025; 86316; 96372; J2353

== ENCOUNTER 2022-08-15 11:20 | Day surgery (SDC) | payer OTHER ==
[2022-08-15] MEDS ORDERED: OCTREOTIDE ACETATE,MI-SPHERES (SANDOSTATIN LAR) 30 MG VIAL IM ONE (11:45)
[2022-08-15 14:41] VITALS: BP 147/75; PULSE 71; RESP 20; TEMP 98
== END 2022-08-15 13:45 | disposition home or self-care (01) ==
LOC: JONCCHEMO 11:20
PROVIDERS: ATTEND Internal Medicine Hematology & Oncology
PROC: 3E013GC Introduction of Other Therapeutic Substance into Subcutaneous Tissue, Percutaneous Approach (ICD-10-PCS; principal; 2022-08-15)
DX: Z76.89 Persons encountering health services in other specified circumstances (principal); C7A.1 Malignant poorly differentiated neuroendocrine tumors
CPT/HCPCS: 96372; J2353

== ENCOUNTER 2022-10-10 12:08 | Day surgery (SDC) | payer OTHER ==
[2022-10-10] MEDS ORDERED: OCTREOTIDE ACETATE,MI-SPHERES (SANDOSTATIN LAR) 30 MG VIAL IM ONE (13:00)
[2022-10-10 14:58] VITALS: BP 138/73; PULSE 62; RESP 18; TEMP 98.5
== END 2022-10-10 13:25 | disposition home or self-care (01) ==
LOC: JONCCHEMO 12:08 → J7W 12:10 → JONCCHEMO 13:25
PROVIDERS: ATTEND Internal Medicine Hematology & Oncology
DX: C7A.1 Malignant poorly differentiated neuroendocrine tumors (principal); Z76.89 Persons encountering health services in other specified circumstances
CPT/HCPCS: 96372; J2353

== ENCOUNTER 2022-12-12 11:56 | Day surgery (SDC) | payer OTHER ==
[2022-12-12 12:28] VITALS: BP 147/76; PULSE 68; RESP 18; TEMP 98.1
[2022-12-12] MEDS ORDERED: OCTREOTIDE ACETATE,MI-SPHERES (SANDOSTATIN LAR) 30 MG VIAL IM ONE (12:45)
== END 2022-12-12 13:30 | disposition home or self-care (01) ==
LOC: JONCCHEMO 11:56 → J7W 12:04 → JONCCHEMO 13:30
PROVIDERS: ATTEND Internal Medicine Hematology & Oncology
PROC: 3E013GC Introduction of Other Therapeutic Substance into Subcutaneous Tissue, Percutaneous Approach (ICD-10-PCS; principal; 2022-12-12)
DX: C7A.1 Malignant poorly differentiated neuroendocrine tumors (principal); Z76.89 Persons encountering health services in other specified circumstances
CPT/HCPCS: 96372; J2353

== ENCOUNTER 2023-01-09 09:37 | Day surgery (SDC) | payer OTHER ==
[2023-01-09] MEDS ORDERED: OCTREOTIDE ACETATE,MI-SPHERES (SANDOSTATIN LAR) 30 MG VIAL IM ONE (10:00)
[2023-01-09 17:05] VITALS: BP 120/77; PULSE 76; RESP 18; TEMP 98.2
== END 2023-01-09 10:50 | disposition home or self-care (01) ==
LOC: JONCCHEMO 09:37 → J7W 09:39 → JONCCHEMO 10:50
PROVIDERS: ATTEND Internal Medicine Hematology & Oncology
DX: C7A.8 Other malignant neuroendocrine tumors (principal); Z76.89 Persons encountering health services in other specified circumstances
CPT/HCPCS: 96372; J2353